=== PATIENT | female | born 1970 | race Caucasian/White ===

== ENCOUNTER → 2024-10-15 | Outpatient (CLI) | payer MEDICARE, MEDICAID, SELFPAY ==
--- NOTE | 2024-10-15 08:30 | XR_ITS ---
Examination: Screening digital mammography, bilateral Computer aided detection 3-D breast Tomosynthesis, bilateral Date and time of exam: October 15, 2024 0810 hours Compared to mammograms dating to August 27, 2008 Indication: Screening Technique: Nonmagnified MLO, CC views of the breasts to been obtained, reconstructed from 3-D Tomosynthesis images. R2 computer aided detection program utilized for evaluation of suspicious masses and/or abnormal calcifications. 3-D Tomosynthesis images obtained. Findings: Scattered areas of fibroglandular density. Benign calcifications. No interval suspicious masses Impression: BI-RADS category II: Benign Findings. Recommend 1 year follow-up mammogram.
== END | disposition home or self-care (01) ==
LOC: CDIM 08:02
PROVIDERS: Referring Provider Physician Assistant; Visit Provider Physician Assistant
DX: R92.323 Mammographic fibroglandular density, bilateral breasts (principal); Z12.31 Encounter for screening mammogram for malignant neoplasm of breast; R92.1 Mammographic calcification found on diagnostic imaging of breast
CPT/HCPCS: 77063; 77067